=== PATIENT | male | born 1995 | race Caucasian/White ===

== ENCOUNTER 2023-05-24 01:24 | Emergency (ER) | payer MEDICAID, SELFPAY ==
[2023-05-24] VITALS (11 sets, daily range): BP systolic 116–122; BP diastolic 78–86; PULSE 61–83; O2SAT 97–99; BMI 372.8
--- NOTE | 2023-05-24 01:54 | ECG_ITS ---
The [facility] Test Date: 2023-05-24 Pat Name: JENNIFER IRVING Department: Room: - Gender: Male Register In Chancery: : 1995 Requested By: Mikael Cartagena Order Number: [id number] Reading MD: GARIMA PEMBERTON Measurements Intervals [place] Rate: 66 P: 62 SD: 158 QRS: 94 QRSD: 120 T: 19 QT: 396 QTc: 409 Interpretive Statements 1100 Sinus rhythm 2320 Nonspecific intraventricular conduction delay 4068 Nonspecific Twave abnormality 7102 Moderate right axis deviation 9130 borderline ECG No previous ECG available for comparison Electronically Signed On 05-24-2023 6:50:38 EDT by GARIMA PEMBERTON
--- NOTE | 2023-05-24 01:55 | XR_ITS ---
The [address] [address] Patient Name: JENNIFER IRVING MRN: [id number] date: 1995 Sex: M Assigned Patient Location: ER Current Patient Location: ED.MAIN Accession/Order Number: [id number] Exam Date: 05/24/2023 01:59 Report Date: 05/24/2023 04:20 At the request of: AMNA HAYNES Procedure: XR chest 1V CLINICAL HISTORY: Chest pain COMPARISON: None FINDINGS: Portable AP view of the chest obtained. Cardiomediastinal silhouette is normal. Lungs are clear, no evidence of infiltrate, suspicious nodule, or mass. No evidence of significant pleural fluid on this portable projection. No acute bony abnormality. XR/XR chest 1V IMPRESSION: No acute abnormality. Electronically authenticated by: RISHABH DOCKERY Date: 05/24/2023 04:20
--- NOTE | 2023-05-24 01:58 | PC.NURSE ---
Pt presents to ER for chest pain and bilateral leg numbness Pt states he was at work and it started approximately 1 hour ago, the numbness in his legs started first Pt states having chest pain is not unusual for him as he has A-fib Pt states he was diagnosed with a-fib 3 years ago Pt see's cardiology in [facility] but does not remember his doctors name Pt states he takes all of his meds as ordered and is scheduled to have an ablation done in August This nurse asked the pt to describe numbness and he replied, you know when you need to stretch your legs and then afterwards it immediately feels better? Well that's not happening and they just don't feel right.
[2023-05-24 02:01] LABS: Basophils Percent Auto 0.8 % (0.2-2.0); Eosinophils Absolute Auto 0.1 10^3/uL (0.0-0.7); Eosinophils Percent Auto 1.7 % (0.9-7.0); Hematocrit 41.3 % (42.0-54.0); Hemoglobin 14.5 g/dL (14.0-18.0); Immature Granulocytes Abs Auto 0.04 10^3/uL (0.00-0.03); Immature Granulocytes Pct Auto 0.8 % (0.0-0.5); Lymphocytes Absolute Auto 1.4 10^3/uL (1.2-3.8); Lymphocytes Percent Auto 30.2 % (20.5-60.0); Mean Corpuscular HGB Conc 35.1 g/dL (29.9-35.2); Mean Corpuscular Hemoglobin 32.1 pg (25.9-34.0); Mean Corpuscular Volume 91.4 fL (80.0-94.0); Mean Platelet Volume 9.9 fL (9.5-13.5); Monocytes Absolute Auto 0.5 10^3/uL (0.3-0.8); Monocytes Percent Auto 9.9 % (1.7-12.0); Neutrophils Absolute Auto 2.7 10^3/uL (1.4-6.5); Neutrophils Percent Auto 56.6 % (43.0-75.0); Platelet Count 192 10^3/uL (150-450); Red Blood Count 4.52 10^6/uL (4.70-6.10); Red Cell Distribution Width 12.9 % (11.0-15.0); White Blood Count 4.7 10^3/uL (4.0-11.0)
--- NOTE | 2023-05-24 02:01 | ED_ITS ---
HPI - Chest Pain General Chief Complaint: Weakness Stated Complaint: CHEST PAIN WEAKNESS IN LEGS Time Seen by Provider: 05/24/23 01:34 Source: patient Mode of arrival: walk-in Limitations: no limitations History of Present Illness HPI narrative: Patient developed palpitations and:both of my legs felt tingly around 1030pm while starting his shift at work. He denied any associated symptoms such as shortness of breath, dizziness or syncope. He said that the sensation of leg tingling continues now. No chest pain or shortness of breath now. No palpitations at this time. PMHx includes afib, he sees Cardio in [facility], scheduled for ablation 08/25/23 Related Data Home Medications ?Medication ?Instructions ?Recorded ?Confirmed apixaban 2.5 mg tablet (Eliquis) 2.5 mg PO BID 05/24/23 05/24/23 diltiazem HCl 120 mg 120 mg PO DAILY 05/24/23 05/24/23 capsule,extended release 24 hr (Cardizem CD) flecainide 50 mg tablet 50 mg PO Q12H 05/24/23 05/24/23 metoprolol tartrate 25 mg tablet 25 mg PO DAILY 05/24/23 05/24/23 omeprazole 20 mg capsule,delayed 20 mg PO DAILY 05/24/23 05/24/23 release Allergies Allergy/AdvReac Type Severity Reaction Status Date / Time No Known Drug Allergies Allergy Verified 05/24/23 01:33 Exam Narrative Exam Narrative: Nurses notes and vital signs reviewed and patient is not hypoxic. afebrile General: Well-appearing and in no apparent distress. Skin: Warm, dry, no pallor noted. Eye: Pupils are equal, round and EOMI. No scleral icterus. Cardiovascular: Regular Rate and Rhythm without murmur, gallop or rub. Respiratory: No accessory muscle use or respiratory distress. Lungs are clear to auscultation, no wheezing, rales or rhonchi Musculoskeletal: normal ROM, no calf or popliteal tenderness, no lower extremity edema/swelling GI: Abdomen is soft, non-distended. Normal bowel sounds. No tenderness to palpation. No rebound, guarding, or rigidity noted. Neurological: A&O x4. No cranial nerve dysfunction observed. No truncal ataxia. Moves all extremities. Sensation intact. Psychiatric: Cooperative and interactive. Normal mood and affect. 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 Blood drawn and sent for evaluation. Chest x-ray obtained EKG reveals normal sinus rhythm. CBC and BMP unremarkable. Troponin negative. He was NSR on EKG and remained NSR on monitor during ED stay. Patient given reassurance. 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 Work excuse given. Medical Records Data Attestation: I reviewed the patient's medical records. Lab Data Attestation: I reviewed the patient's lab results. Labs: Lab Results 05/24/23 Range/Units 01:37 WBC 4.7 (4.0-11.0) 10^3/uL RBC 4.52 L (4.70-6.10) 10^6/uL Hgb 14.5 (14.0-18.0) g/dL Hct 41.3 L (42.0-54.0) % MCV 91.4 (80.0-94.0) fL MCH 32.1 (25.9-34.0) pg MCHC 35.1 (29.9-35.2) g/dL RDW 12.9 (11.0-15.0) % Plt Count 192 (150-450) 10^3/uL MPV 9.9 (9.5-13.5) fL Neut % (Auto) 56.6 (43.0-75.0) % Lymph % (Auto) 30.2 (20.5-60.0) % [place] % (Auto) 9.9 (1.7-12.0) % Eos % (Auto) 1.7 (0.9-7.0) % Baso % (Auto) 0.8 (0.2-2.0) % Neut # (Auto) 2.7 (1.4-6.5) 10^3/uL Lymph # (Auto) 1.4 (1.2-3.8) 10^3/uL [place] # (Auto) 0.5 (0.3-0.8) 10^3/uL Eos # (Auto) 0.1 (0.0-0.7) 10^3/uL Baso # (Auto) 0.0 (0.0-0.1) 10^3/uL Abs Immat Gran (auto) 0.04 H (0.00-0.03) 10^3/uL Imm/Tot Granulo (auto) 0.8 H (0.0-0.5) % Sodium 140 (136-145) mmol/L Potassium 3.8 (3.5-5.1) mmol/L Chloride 103 (98-107) mmol/L Carbon Dioxide 27.8 (21.0-32.0) mmol/L Anion Gap 13.0 BUN 8.0 (7.0-18.0) mg/dL Creatinine 0.83 (0.70-1.30) mg/dL Est GFR ( Amer) >60 (>=60) Est GFR (Non-Af Amer) >60 (>=60) BUN/Creatinine Ratio 9.6 Glucose 98 (74-106) mg/dL Calcium 8.3 L (8.5-10.1) mg/dL Troponin I High Sens <4.0 L (4.0-76.1) pg/mL ECG Data Attestation: I personally reviewed and interpreted this ECG as follows: Interpretation: EKG interpretation: Emergency Department physician interpretation. Normal sinus rhythm at 66bpm. Moderate right axis, Nonspecific QRS widening, nonspecific T wave changes - Subtle ST depression in lead III and T wave inversion in lead V2 - and no ST segment elevation or depression. Discharge Plan Discharge Stand Alone Forms: Portal Instructions Chief Complaint: Weakness Clinical Impression: Palpitations, Paresthesia of bilateral legs Patient Disposition: Home, Self-Care Time of Disposition Decision: 02:30 Prescriptions / Home Meds: No Action diltiazem HCl [Cardizem CD] 120 mg capsule,extended release 24hr 120 mg PO DAILY metoprolol tartrate 25 mg tablet 25 mg PO DAILY flecainide 50 mg tablet 50 mg PO Q12H Eliquis 2.5 mg tablet 2.5 mg PO BID omeprazole 20 mg capsule,delayed release(DR/EC) 20 mg PO DAILY Print Language: Norwegian Instructions: Chest Pain (ED), Paresthesia (ED) Referrals: Physician,Non-Staff, MD [Primary Care Provider] - 1 week
[2023-05-24 02:06] LABS: BUN Creatinine Ratio 9.6; Calcium 8.3 mg/dL (8.5-10.1); Carbon Dioxide 27.8 mmol/L (21.0-32.0); Chloride 103 mmol/L (98-107); Estimated GFR (African America >60 (>=60); Estimated GFR (Non-African Ame >60 (>=60); Glucose 98 mg/dL (74-106); Potassium 3.8 mmol/L (3.5-5.1); Sodium 140 mmol/L (136-145)
[2023-05-24 02:15] LABS: Troponin I High Sensitivity <4.0 pg/mL (4.0-76.1)
== END 2023-05-24 02:42 | disposition home or self-care (01) ==
PROVIDERS: Emergency Provider Emergency Medicine
DX: R00.2 Palpitations (principal); R20.2 Paresthesia of skin; I48.91 Unspecified atrial fibrillation; Z79.01 Long term (current) use of anticoagulants; Z79.899 Other long term (current) drug therapy
CPT/HCPCS: 36415; 71045; 80048; 84484; 85025; 93005; 99285

== ENCOUNTER 2023-10-24 20:27 | Emergency (ER) | payer SELFPAY ==
[2023-10-24] VITALS (27 sets, daily range): BP systolic 117–133; BP diastolic 54–85; PULSE 74–128; TEMP 36.3; O2SAT 93–100
--- NOTE | 2023-10-24 20:35 | CT_ITS ---
The [address] [address] Patient Name: JENNIFER IRVING MRN: [id number] date: 1995 Sex: M Assigned Patient Location: ED.MAIN Current Patient Location: Accession/Order Number: [id number] Exam Date: 10/24/2023 21:20 Report Date: 10/24/2023 21:46 At the request of: TEJ REYES Procedure: CT head/brain wo con EXAM: CT head/brain wo con, CT facial bones wo con REASON FOR EXAM: Male, 28 years, trauma. TECHNIQUE: Computed tomography of the head and facial bones is performed in the axial projection. Sagittal and coronal reconstructed images are performed. Dose reduction techniques were achieved by using automated exposure control and/or adjustment of mA and/or KVP according to patient size and/or use of iterative reconstruction technique. COMPARISON: None. FINDINGS: There is a soft tissue laceration in the left temporal scalp. There is air within the soft tissues, and soft tissue edema in this region. There are lacerations in the frontal scalp. Tiny radiodensities along the left side of the scalp are consistent with soft tissue foreign bodies. No underlying skull fracture. The ventricles have normal size and configuration for patient's age. Normal brain parenchyma. Normal basal ganglia. Normal brainstem. The cerebellum is normal. There is no evidence for acute ischemia. There is no evidence for acute hemorrhage. The artificial intelligence algorithm flagged this study as positive for ICH. However, this finding is in fact due to the dominant left transverse sinus, in which arachnoid granulations can be visualized. There is minimal mucosal thickening within the left maxillary sinus. Normal nasal bones and maxillary spine. There is a radiopaque foreign body within the left nostril, measuring approximately 5 mm in diameter. There appears to be some superficial gravel overlying the limits. There is no mandibular fracture. Normal alignment at the temporomandibular joints. There is diffuse dental disease, with multiple carious teeth. Normal zygomas and pterygoid plates. The orbital mueller are preserved. The globes are symmetric. CT/CT head/brain wo con IMPRESSION: Extensive soft tissue injury. Radiodensities are seen within the left frontal scalp, superficially in the region of the lips, and within the left nostril. No acute intracranial abnormality. The AI finding is a false positive, with the region identified in fact representing a dominant left transverse sinus with arachnoid granulations. No acute facial bone fracture. Electronically authenticated by: ROLANDO GALLARDO Date: 10/24/2023 21:46
--- NOTE | 2023-10-24 20:35 | XR_ITS ---
The [address] [address] Patient Name: JENNIFER IRVING MRN: [id number] date: 1995 Sex: M Assigned Patient Location: ER Current Patient Location: ER Accession/Order Number: [id number] Exam Date: 10/24/2023 21:00 Report Date: 10/24/2023 21:35 At the request of: TEJ REYES Procedure: XR knee LT 3V EXAMINATION: XR knee LT 3V, , 10/24/2023 9:00 PM EDT INDICATION: trauma HISTORY: Ordering Provider Reason for Exam: trauma Technologist Note: Additional: COMPARISON: None. TECHNIQUE: Left knee x-ray: 3 view(s). FINDINGS: No acute fracture. Joint alignment is anatomic. Joint spaces are preserved. No significant joint effusion. Soft tissues are within normal limits. XR/XR knee LT 3V IMPRESSION: No acute fracture or traumatic malalignment. Electronically authenticated by: YVONNE STEELE Date: 10/24/2023 21:35
--- NOTE | 2023-10-24 20:35 | CT_ITS ---
The [address] [address] Patient Name: JENNIFER IRVING MRN: [id number] date: 1995 Sex: M Assigned Patient Location: ER Current Patient Location: ER Accession/Order Number: [id number] Exam Date: 10/24/2023 21:20 Report Date: 10/24/2023 21:48 At the request of: TEJ REYES Procedure: CT cervical spine wo con EXAM TYPE: CT cervical spine wo con EXAM DATE AND TIME: 10/24/2023 9:20 PM EDT INDICATION: 28 years old Male with trauma COMPARISON: None. TECHNIQUE: CT imaging of the cervical spine was obtained without contrast. Dose reduction techniques were achieved by using automated exposure control and/or adjustment of mA and/or kV according to patient size and/or use of iterative reconstruction technique. FINDINGS: There is normal cervical lordosis. No subluxation. Vertebral body heights are maintained. No fracture. Craniocervical junction is normal in appearance. Atlantodental distance is not widened. No prevertebral soft tissue swelling. CT/CT cervical spine wo con IMPRESSION: No acute fracture or traumatic malalignment. Electronically authenticated by: ROLANDO GALLARDO Date: 10/24/2023 21:48
--- NOTE | 2023-10-24 20:35 | CT_ITS ---
[address] [address] Patient Name: JENNIFER IRVING MRN: [id number] date: 1995 Sex: M Assigned Patient Location: ER Current Patient Location: Accession/Order Number: [id number] Exam Date: 10/24/2023 21:20 Report Date: 10/24/2023 21:53 At the request of: TEJ REYES Procedure: CT chest w con EXAM: CT abdomen pelvis w con, CT chest w con REASON FOR EXAM: Male, 28 years, trauma. TECHNIQUE: Computed tomography of the chest, abdomen and pelvis is performed in the axial projection from the lung apices to the pubic symphysis. Sagittal and coronal reconstructed images are performed. Dose reduction techniques were achieved by using automated exposure control and/or adjustment of mA and/or KVP according to patient size and/or use of iterative reconstruction technique. A total of 100 mL Omnipaque 300 IV contrast was given. Study was performed without oral contrast. COMPARISON: None. FINDINGS: CT CHEST: There is pleural thickening at the lung apices. No focal consolidation. No pleural effusion or pneumothorax. No mediastinal or hilar adenopathy. No mediastinal hematoma. No pericardial effusion identified. Heart size is normal. No coronary artery calcifications. Normal visualized clavicles and shoulders. No displaced rib fractures. The sternum is intact. Liver: The liver is normal. Gallbladder: The gallbladder is normal. Spleen: The spleen is normal. Pancreas: The pancreas is normal. Adrenal glands: The adrenal glands are normal bilaterally. Right kidney: The kidney is normal in size. There is no renal calculus or hydronephrosis. Left kidney: The kidney is normal in size. There is no renal calculus or hydronephrosis. Stomach: The stomach is normal. Small bowel: The small bowel is normal. Large bowel: The colon is normal. Appendix: The appendix is visualized, and is normal. Aorta: The aorta is normal IVC: The IVC is normal. Retroperitoneum: Normal retroperitoneum. Bladder: The bladder is normal. Pelvic organs: Normal prostate gland. Abdominal wall: Normal abdominal wall. Osseous structures: There are mild degenerative changes at the lumbosacral junction. The bones of the pelvis are intact. The SI joints are symmetric. No vertebral body fracture. CT/CT chest w con IMPRESSION: No acute traumatic abnormality within the chest, abdomen, and pelvis. Electronically authenticated by: ROLANDO GALLARDO Date: 10/24/2023 21:53
--- NOTE | 2023-10-24 20:35 | CT_ITS ---
[address] [address] Patient Name: JENNIFER IRVING MRN: [id number] date: 1995 Sex: M Assigned Patient Location: ER Current Patient Location: Accession/Order Number: [id number] Exam Date: 10/24/2023 21:20 Report Date: 10/24/2023 21:53 At the request of: TEJ REYES Procedure: CT abdomen pelvis w con EXAM: CT abdomen pelvis w con, CT chest w con REASON FOR EXAM: Male, 28 years, trauma. TECHNIQUE: Computed tomography of the chest, abdomen and pelvis is performed in the axial projection from the lung apices to the pubic symphysis. Sagittal and coronal reconstructed images are performed. Dose reduction techniques were achieved by using automated exposure control and/or adjustment of mA and/or KVP according to patient size and/or use of iterative reconstruction technique. A total of 100 mL Omnipaque 300 IV contrast was given. Study was performed without oral contrast. COMPARISON: None. FINDINGS: CT CHEST: There is pleural thickening at the lung apices. No focal consolidation. No pleural effusion or pneumothorax. No mediastinal or hilar adenopathy. No mediastinal hematoma. No pericardial effusion identified. Heart size is normal. No coronary artery calcifications. Normal visualized clavicles and shoulders. No displaced rib fractures. The sternum is intact. Liver: The liver is normal. Gallbladder: The gallbladder is normal. Spleen: The spleen is normal. Pancreas: The pancreas is normal. Adrenal glands: The adrenal glands are normal bilaterally. Right kidney: The kidney is normal in size. There is no renal calculus or hydronephrosis. Left kidney: The kidney is normal in size. There is no renal calculus or hydronephrosis. Stomach: The stomach is normal. Small bowel: The small bowel is normal. Large bowel: The colon is normal. Appendix: The appendix is visualized, and is normal. Aorta: The aorta is normal IVC: The IVC is normal. Retroperitoneum: Normal retroperitoneum. Bladder: The bladder is normal. Pelvic organs: Normal prostate gland. Abdominal wall: Normal abdominal wall. Osseous structures: There are mild degenerative changes at the lumbosacral junction. The bones of the pelvis are intact. The SI joints are symmetric. No vertebral body fracture. CT/CT abdomen pelvis w con IMPRESSION: No acute traumatic abnormality within the chest, abdomen, and pelvis. Electronically authenticated by: ROLANDO GALLARDO Date: 10/24/2023 21:53
--- NOTE | 2023-10-24 20:35 | CT_ITS ---
The [address] [address] Patient Name: JENNIFER IRVING MRN: [id number] date: 1995 Sex: M Assigned Patient Location: ER Current Patient Location: Accession/Order Number: [id number] Exam Date: 10/24/2023 21:20 Report Date: 10/24/2023 21:46 At the request of: TEJ REYES Procedure: CT facial bones wo con EXAM: CT head/brain wo con, CT facial bones wo con REASON FOR EXAM: Male, 28 years, trauma. TECHNIQUE: Computed tomography of the head and facial bones is performed in the axial projection. Sagittal and coronal reconstructed images are performed. Dose reduction techniques were achieved by using automated exposure control and/or adjustment of mA and/or KVP according to patient size and/or use of iterative reconstruction technique. COMPARISON: None. FINDINGS: There is a soft tissue laceration in the left temporal scalp. There is air within the soft tissues, and soft tissue edema in this region. There are lacerations in the frontal scalp. Tiny radiodensities along the left side of the scalp are consistent with soft tissue foreign bodies. No underlying skull fracture. The ventricles have normal size and configuration for patient's age. Normal brain parenchyma. Normal basal ganglia. Normal brainstem. The cerebellum is normal. There is no evidence for acute ischemia. There is no evidence for acute hemorrhage. The artificial intelligence algorithm flagged this study as positive for ICH. However, this finding is in fact due to the dominant left transverse sinus, in which arachnoid granulations can be visualized. There is minimal mucosal thickening within the left maxillary sinus. Normal nasal bones and maxillary spine. There is a radiopaque foreign body within the left nostril, measuring approximately 5 mm in diameter. There appears to be some superficial gravel overlying the limits. There is no mandibular fracture. Normal alignment at the temporomandibular joints. There is diffuse dental disease, with multiple carious teeth. Normal zygomas and pterygoid plates. The orbital mueller are preserved. The globes are symmetric. CT/CT facial bones wo con IMPRESSION: Extensive soft tissue injury. Radiodensities are seen within the left frontal scalp, superficially in the region of the lips, and within the left nostril. No acute intracranial abnormality. The AI finding is a false positive, with the region identified in fact representing a dominant left transverse sinus with arachnoid granulations. No acute facial bone fracture. Electronically authenticated by: ROLANDO GALLARDO Date: 10/24/2023 21:46
--- NOTE | 2023-10-24 20:38 | ECG_ITS ---
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
--- NOTE | 2023-10-24 20:47 | XR_ITS ---
The [address] [address] Patient Name: JENNIFER IRVING MRN: [id number] date: 1995 Sex: M Assigned Patient Location: ER Current Patient Location: ER Accession/Order Number: [id number] Exam Date: 10/24/2023 21:00 Report Date: 10/24/2023 21:37 At the request of: TEJ REYES Procedure: XR shoulder LT min 2V EXAM: XR shoulder LT min 2V HISTORY: trauma COMPARISON: None. TECHNIQUE: 2 views of the left shoulder are performed. FINDINGS: There is no fracture or dislocation. The bony structures are intact. The soft tissues are unremarkable. The visualized left lung is clear. XR/XR shoulder LT min 2V IMPRESSION: No acute bony abnormality. Electronically authenticated by: ROLANDO GALLARDO Date: 10/24/2023 21:37
[2023-10-24 20:57] LABS: Basophils Absolute Auto 0.1 10^3/uL (0.0-0.1); Basophils Percent Auto 0.8 % (0.2-2.0); Eosinophils Absolute Auto 0.1 10^3/uL (0.0-0.7); Eosinophils Percent Auto 1.5 % (0.9-7.0); Hematocrit 44.2 % (42.0-54.0); Immature Granulocytes Abs Auto 0.03 10^3/uL (0.00-0.03); Immature Granulocytes Pct Auto 0.3 % (0.0-0.5); Lymphocytes Absolute Auto 3.9 10^3/uL (1.2-3.8); Lymphocytes Percent Auto 41.7 % (20.5-60.0); Mean Corpuscular HGB Conc 36.2 g/dL (29.9-35.2); Mean Corpuscular Hemoglobin 33.8 pg (25.9-34.0); Mean Corpuscular Volume 93.4 fL (80.0-94.0); Mean Platelet Volume 9.5 fL (9.5-13.5); Monocytes Absolute Auto 0.6 10^3/uL (0.3-0.8); Monocytes Percent Auto 6.3 % (1.7-12.0); Neutrophils Absolute Auto 4.6 10^3/uL (1.4-6.5); Neutrophils Percent Auto 49.4 % (43.0-75.0); Platelet Count 273 10^3/uL (150-450); Red Blood Count 4.73 10^6/uL (4.70-6.10); Red Cell Distribution Width 11.4 % (11.0-15.0); White Blood Count 9.3 10^3/uL (4.0-11.0)
[2023-10-24 21:14] LABS: Alanine Aminotransferase 20 U/L (16-63); Albumin Globulin Ratio 1.5; Albumin Level 4.3 g/dL (3.4-5.0); Alkaline Phosphatase 87 U/L (46-116); Anion Gap 17.8; Aspartate Amino Transferase 18 U/L (15-37); BUN Creatinine Ratio 7.4; Bilirubin Total 0.3 mg/dL (0.2-1.0); Calcium 8.5 mg/dL (8.5-10.1); Carbon Dioxide 23.7 mmol/L (21.0-32.0); Chloride 104 mmol/L (98-107); Estimated GFR (African America >60 (>=60); Estimated GFR (Non-African Ame >60 (>=60); Ethanol 213 mg/dL; Globulin 2.9 g/dL; Glucose 94 mg/dL (74-106); Potassium 3.5 mmol/L (3.5-5.1); Sodium 142 mmol/L (136-145); Total Protein 7.2 g/dL (6.4-8.2); Troponin I High Sensitivity 9.5 pg/mL (4.0-76.1)
[2023-10-24 21:19] LABS: Lactate/Lactic Acid 3.2 mmol/L (0.4-2.0)
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
[2023-10-24] MEDS: 0.9 % SODIUM CHLORIDE 1,000 ML 999 ML IV (22:01)
[2023-10-24] MEDS: LIDOCAINE HCL 1%-EPINEPHRINE 1:100,000 20 ML MDV INJ (22:02)
[2023-10-25] VITALS: PULSE 91
[2023-10-25 00:10] VITALS: PULSE 94
[2023-10-25 00:20] VITALS: PULSE 94
[2023-10-25 00:30] VITALS: PULSE 93
[2023-10-25 00:40] VITALS: BP 102/60; PULSE 113
[2023-10-25] MEDS: ONDANSETRON PF 4 MG/2 ML VIAL IV (01:15)
[2023-10-25] MEDS: AMOXICILLIN/POTASSIUM CLAV 1 TAB TABLET PO (01:15)
== END 2023-10-25 01:28 | disposition home or self-care (01) ==
PROVIDERS: Emergency Provider Internal Medicine
DX: S01.112A Laceration without foreign body of left eyelid and periocular area, initial encounter (principal); V29.99XA Rider (driver) (passenger) of other motorcycle injured in unspecified traffic accident, initial encounter; S80.212A Abrasion, left knee, initial encounter; S40.212A Abrasion of left shoulder, initial encounter; F10.129 Alcohol abuse with intoxication, unspecified; Y90.7 Blood alcohol level of 200-239 mg/100 ml; S06.0XAA Concussion with loss of consciousness status unknown, initial encounter; S13.4XXA Sprain of ligaments of cervical spine, initial encounter; S01.81XA Laceration without foreign body of other part of head, initial encounter
CPT/HCPCS: 12015; 12053; 36415; 70450; 70486; 71260; 72125; 73030; 73562; 74177; 80053; 80307; 80320; 83605; 84484; 85025; 93005; 96374; 99285; J2405; Q9967